=== PATIENT | female | born 1990 | race Two or more races ===

== ENCOUNTER 2025-07-18 07:27 | Emergency (ER) | payer OTHER, SELFPAY ==
[2025-07-18 07:29] VITALS: BP 122/87
[2025-07-18 08:00] VITALS: BP 129/79; BMI 23.1
[2025-07-18] MEDS: TYLENOL 1000 MG PO (08:05)
--- NOTE | 2025-07-18 08:22 | ED.GENMED ---
History of Present Illness
General
Chief Complaint: Cold/Flu/URI Symptoms
Source: patient
Exam Limitations: none
Time Seen by Provider: 07/18/25 07:33
Nursing documentation reviewed up to this point in time: agreed with
History of Present Illness
History of Present Illness:
Patient presents to ED secondary to 4-day history of persistent fever, chills, body ache, and nonproductive cough, with decreased appetite. Patient was evaluated by telemedicine, and was prescribed steroids along with antibiotics, for presumed
bronchitis, without improvement in symptoms. Denies sick contact. Denies recent travel. Denies back pain. Denies previous history of similar symptoms. Patient otherwise is healthy, without any sig medical history.
Past History
Past History
ED Past Medical History: GERD and Hypothyroidism
ED Past Surgical History: Orthopedic
Social History
Tobacco: Non-smoker
Personal:
Living: with family
Review of Systems
Review of Systems
Allergies reviewed?: Yes
All Other Systems: ROS reviewed and negative except as documented in HPI and ROS
Constitutional: Reports fever and chills
EENT: Reports no symptoms
Respiratory: Reports cough and trouble breathing
Cardiac: Reports palpitations; Denies chest pain
ABD/GI: Reports nausea, vomiting and diarrhea; Denies abdominal pain
Musculoskeletal: Reports muscle pain
Skin: Reports no symptoms
Neurological: Reports no symptoms
Phy Exam
Physical Exam
Physical Exam:
Physical Exam
General: mild distress, not acutely ill. febrile.
Head: nc/at. eomi
Neck: supple. no meningeal signs.
Heart: s1/s2 regular rate and rhythm. tachycardic
Lungs: no acute respiratory distress. clear bilaterally
Abdomen: normal bowel sounds. not tender.
Neuro: alert and oriented x 3. no focal neurological deficits
Skin: no rash
Psychiatric: well kept. interactive and cooperative
Extremities: no edema. no calf tenderness.
Sepsis
Sepsis Screening
Sepsis Assessment: Sepsis Ruled Out
Sepsis Screen
Sepsis Screen: Sepsis Ruled Out
Date: 07/18/25
Time: 14:22
Course
Orders/Labs/Results
Orders:
Orders
07/18/25 07:46
COVID-19 Antigen Urgent
Source: Nasal Swab
Complete Blood Count/With Diff Urgent
Comprehensive Metabolic Panel Urgent
Monotest Urgent
Influenza A+B Rapid Molecular Urgent
DOMINGO Source: Nasal Swab
Specimen Description:
07/18/25 08:03
Acetaminophen [Tylenol] 1,000 mg .ROUTE .STK-MED ONE
07/18/25 08:04
Acetaminophen [Tylenol] 1,000 mg PO NOW STA
07/18/25 08:05
0.9% Sodium Chloride 1000 ml [Nss] 1,000 ml IV BOLUS
0.9% Sodium Chloride 500 ml [Nss] 500 ml IV BOLUS
Guaifenesin/Codeine Solution [Robitussin AC] 10 ml PO NOW STA
Ketorolac [Toradol] 15 mg IV NOW STA
07/18/25 09:03
CR Chest - 2 Views Urgent
Comment:
Reason For Exam: cough/sob
07/18/25 10:20
Add On- LAB Urgent
Tests Added?: monospot
Abnormal Lab Results
07/18/25
07:46
Plt Count 113 L 10^3/uL
(130-400)
Absolute Lymphs (auto) 0.6 L 10^3/uL
(1.2-3.4)
Neutrophils % 76.3 H %
(42.2-75.2)
Lymphocytes % 12.2 L %
(20.5-51.1)
Monocytes % 10.7 H %
(1.7-9.3)
Sodium 131 L mmol/L
(135-145)
BUN 4 L mg/dl
(7-17)
Glucose 142 H mg/dl
(70-99)
AST 225 H U/L
(14-36)
ALT 99 H U/L
(0-35)
Monoscreen Positive A
(Negative)
07/18/25 07:46
07/18/25 07:46
Vital Signs
Initial and Last Documented VS:
Initial Vital Signs
Temp Pulse Resp BP Pulse Ox
103.3 F H 130 18 122/87 98
07/18/25 07:29 07/18/25 07:29 07/18/25 07:29 07/18/25 07:29 07/18/25 07:29
Last Documented Vital Signs
Temp Pulse Resp BP Pulse Ox
98.9 F 97 31 115/66 96
07/18/25 09:00 07/18/25 10:00 07/18/25 10:00 07/18/25 10:00 07/18/25 10:00
MDM/Problems Addressed
MDM/Problems Addressed:
Chest x-ray report reviewed and discussed with patient. Blood work results, significant for hyponatremia as well as mildly abnormal liver function test noted, and discussed with patient. Otherwise, patient reports significant improvement symptoms
after treatment. Initial tachycardia resolved after IV fluid administration. Patient will be advised to continue antibiotics, i.e. Augmentin, already prescribed by urgent care, along with increased fluid intake at home as well as PCP follow-up.
Advised to return to ED with worsening symptoms. Patient otherwise is hemodynamically stable, at time of discharge, to the care of her
*Pulse Oximetry
SaO2: 98
Oxygen Mode of Delivery: Room air
Patient hypoxic: no
*Critical Care Note
Total Time (30-74mins, 75-104mins- exclusive of procedures): Not Applicable
ED Attending Note
-
Portions of this chart may have been created with voice recognition software.� Occasional wrong word or��sound alike� substitutions may have occurred due to the inherent limitations of voice recognition software.
Discharge Plan
Departure
Patient Disposition: Home (Routine Discharge)
Date of Disposition: 07/18/25
Time of Disposition: 10:46
Patient with high blood pressure during this ER visit?: Yes
Discharge Problem:
Pneumonia
Instructions: Pneumonia in adults - ED (DC)
Prescriptions:
New
benzonatate 100 mg capsule
100 mg PO TID PRN (Reason: Cough) Qty: 20 0RF
No Action
hydrocodone-acetaminophen 1 TABLET tablet
1 tab PO Q4HPRN PRN (Reason: pain) Qty: 6 0RF
cyclobenzaprine 10 MG tablet
10 mg PO TIDPRN PRN (Reason: neck stiffness) Qty: 20 0RF
ketorolac 10 MG tablet
10 mg PO Q6HPRN PRN (Reason: pain) Qty: 20 0RF
Referrals:
Iggy Gagnon DO [Family Provider, Physical Medicine / Rehab]
Stand Alone Forms: Return to Work
Activity Restrictions/Additional Instructions:
As discussed, please follow-up with your primary care physician for reevaluation, including repeat blood work as an outpatient over the next 2 to 3 weeks. Please consider return to ED with worsening symptoms. In the meantime, recommend continue to
take Tylenol/Motrin for fever and bodyaches, along with already prescribed antibiotics, as well as increased fluid intake.
Interventions
Interventions:
*Risk Screen - Suicide Last Done: 07/18/25 07:29
*General Assessment Last Done: 07/18/25 08:00
*Neglect/Abuse Screening Last Done: 07/18/25 07:29
*ED- Fall Risk Assessment Last Done: 07/18/25 08:00
ED- Pulmonary Assessment Last Done: 07/18/25 08:00
Discharge Date and Time
Print Language: SAMI
[2025-07-18 08:24] LABS: Hematocrit 38.1 % (37.0-47.0); Hemoglobin 13.3 g/dL (12.0-16.0); Mean Corp Hgb Conc. 34.9 g/dL (33.0-37.0); Mean Corpuscular Volume 83.0 fL (81.0-99.0); Nucleated Red Blood Cells % 0 %; Platelet Count 113 10^3/uL (130-400); Red Cell Dist. Width 13.4 % (11.5-14.5)
[2025-07-18 08:31] LABS: COVID-19 Antigen Negative (Negative)
[2025-07-18 08:41] LABS: ALT (SGPT) 99 U/L (0-35); AST (SGOT) 225 U/L (14-36); Albumin 4.0 g/dl (3.5-5.0); Alkaline Phosphatase 38 U/L (38-126); Blood Urea Nitrogen 4 mg/dl (7-17); Calcium 9.0 mg/dl (8.4-10.2); Carbon Dioxide 28 mmol/L (22-30); Chloride 99 mmol/L (98-107); Estimated Creatinine Clearance 107 ml/min; Glucose 142 mg/dl (70-99); Potassium 3.6 mmol/L (3.5-5.1); Sodium 131 mmol/L (135-145); Total Protein 6.7 g/dl (6.3-8.2); eGFR > 60.00
[2025-07-18 09:00] VITALS: BP 119/77
[2025-07-18] MEDS: ROBITUSSIN AC 10 ML PO (09:10)
[2025-07-18] MEDS: TORADOL 15 MG IV (09:10)
[2025-07-18] MEDS: NSS 1000 IV (09:11)
[2025-07-18] MEDS: NSS 500 IV (09:11)
[2025-07-18 09:19] VITALS: BP 120/65
[2025-07-18 10:00] VITALS: BP 115/66
== END 2025-07-18 11:20 | disposition home or self-care (01) ==
LOC: EMR 07:27
PROVIDERS: EMERGENCY PHYSICIAN Emergency Medicine; FAMILY PHYSICIAN Family Medicine
DX: J18.9 Pneumonia, unspecified organism (principal); E87.1 Hypo-osmolality and hyponatremia; R79.89 Other specified abnormal findings of blood chemistry; E03.9 Hypothyroidism, unspecified; K21.9 Gastro-esophageal reflux disease without esophagitis
CPT/HCPCS: 99284; 96374; 96361; 71046; 80053; 85025; 86308; 87502; 87811